=== PATIENT | female | born 1975 | race Caucasian/White ===

== ENCOUNTER 2024-09-18 09:13 | Emergency (ER) | payer BC, SELFPAY ==
[2024-09-18 09:19] VITALS: BP 142/93
[2024-09-18 10:00] VITALS: BP 139/84
[2024-09-18] MEDS: BENADRYL 25 MG IV (11:00)
[2024-09-18] MEDS: REGLAN 10 MG IV (11:00)
[2024-09-18] MEDS: NSS 1000 IV (11:00)
[2024-09-18 11:11] LABS: Hematocrit 41.6 % (37.0-47.0); Hemoglobin 14.3 g/dL (12.0-16.0); Mean Corp Hgb Conc. 34.4 g/dL (33.0-37.0); Mean Corpuscular Volume 88.3 fL (81.0-99.0); Nucleated Red Blood Cells % 0 %; Platelet Count 176 10^3/uL (130-400); Red Cell Dist. Width 13.4 % (11.5-14.5)
[2024-09-18 11:35] LABS: ALT (SGPT) 14 U/L (0-35); AST (SGOT) 19 U/L (14-36); Albumin 4.3 g/dl (3.5-5.0); Alkaline Phosphatase 45 U/L (38-126); Blood Urea Nitrogen 13 mg/dl (7-17); Calcium 9.4 mg/dl (8.4-10.2); Carbon Dioxide 25 mmol/L (22-30); Chloride 106 mmol/L (98-107); Glucose 101 mg/dl (70-99); Potassium 4.0 mmol/L (3.5-5.1); Sodium 137 mmol/L (135-145); Total Protein 7.0 g/dl (6.3-8.2); eGFR > 60.00
[2024-09-18 11:50] LABS: C-Reactive Protein < 5.00 mg/L (0.0-10.00)
[2024-09-18 12:00] VITALS: BP 135/78
[2024-09-18 14:30] VITALS: BP 122/89
--- NOTE | 2024-09-18 14:30 | ED.GENMED ---
History of Present Illness
General
Chief Complaint: Headache
Source: patient and spouse
Time Seen by Provider: 09/18/24 09:32
History of Present Illness
History of Present Illness:
Note:
CHIEF COMPLAINT(S)
Severe headache
HISTORY OF PRESENT ILLNESS
The patient is a 49-year-old female presenting with a severe headache, which first occurred eight days ago. Initially described as pulsating in nature, the headache has evolved to feel like electric shocks. It is predominantly located at the back of
the head and is more intense on the left side. The patient reports that this is unlike her usual headaches, which typically occur in the frontal region and are spaced months apart, typically managed with migraine medication. The current headache
persisted even after treatment at an urgent care center, where she initially received ear drops for a suspected ear infection and subsequent nasal spray, neither of which alleviated the symptoms. A visit to the emergency department was followed by a
CT scan, urinalysis, and a headache cocktail, which provided only temporary relief. The headache returned within an hour. She has also experienced nausea, having vomited once, and reports photophobia, with light sensitivity worsening today.
Additional symptoms include early flu-like symptoms, and there was an unconfirmed episode of fever last week, which responded to medication. The patient recently returned from a trip to [facility] and expressed concern about potential meningitis,
though reassured there are no continuous fevers or severe systemic symptoms indicative of bacterial meningitis. The patient noted unusual sensations on her left side, mentioned her history of multiple sclerosis, and explained her differing pupil
sizes due to past optic neuritis. Additional information from the spouse states that she has had hyperesthesia of her skin.
SOCIAL DETERMINANTS AFFECTING HEALTH
The patient mentioned having to follow up on a medication prescribed for her multiple sclerosis. On questioning, it appears that the new medication might impact her immune system.
REVIEW OF SYSTEMS
- Headache: Severe, located at the occipital region, more pronounced on the left side.
- Visual: Phobic to light and experienced transient diplopia.
- Neurological: Reports of electric shock-like sensation, no consistent fever.
- Nausea: Vomited once, feeling feverish and cold concurrently.
PHYSICAL EXAM
General: Alert, no acute distress.
Skin: Warm, dry.
Head: Normocephalic, atraumatic.
Neck: Supple, trachea midline.
Eye, Ears, Nose, and Mouth: Oral mucosa moist, pupils equal, round, and reactive to light bilaterally.
Cardiovascular: Normal peripheral perfusion, no edema.
Respiratory: Respirations are non-labored.
Gastrointestinal: Abdomen nondistended.
Back: Normal range of motion, normal alignment.
Musculoskeletal: Normal ROM, normal strength.
Neurological: Alert and oriented to person, place, time, and situation, no focal neurological deficit observed.
Psychiatric: Cooperative, appropriate mood and affect.
PROBLEM LIST
Acute:
- Severe occipital headache with atypical pain.
- Transient diplopia.
- Nausea and vomiting.
- Photophobia.
Chronic:
- Multiple sclerosis.
PLAN
- Consider occipital nerve block to evaluate for possible occipital neuralgia and provide symptomatic relief.
- Continue with current steroids as prescribed by previous providers.
- Ensure follow-up with neurology for comprehensive evaluation and ongoing management of multiple sclerosis and headache etiology.
- Obtain additional blood work and urinalysis as per the previous emergency department visit plan for further evaluation.
DIFFERENTIAL DIAGNOSIS
The Differential Diagnosis includes, in no particular order and is not limited to:
- Migraine headache
- Tension-type headache
- Occipital neuralgia
- Sinusitis
- Cluster headache
- Intracranial neoplasm
- Meningitis
- Cerebral venous sinus thrombosis
- Temporal arteritis
- Multiple sclerosis exacerbation
CARE-UPDATE
09/18/24 - 10:51
Patient reassessed with no significant improvement following injection of lidocaine and bupivacaine at the occipital notch. Labs and CTA planned to rule out dissection or aneurysm.
Disposition:
SUMMARY OF ENCOUNTER
The patient, a 49-year-old female, presented to the emergency department with a severe occipital headache evolving into electric shock-like sensations at the back of her head. Her previous treatments, including migraine medications, ear drops, and
nasal spray, did not relieve her symptoms. A CT angiogram of the head and neck ruled out aneurysm, dissection, or significant vascular disease, though mild to moderate cervical disc disease was noted. Despite an occipital nerve block, her headache
persisted. Diazepam was provided as a muscle relaxant to address cervical muscle tenderness and she was advised to continue with steroids and follow up with her primary care provider.
REASSESSMENT
The patient was reassessed and appeared well, engaging with family, yet reported a mild persistent headache.
PLAN
Recommend continuation of current steroids, and follow-up with her primary care provider. If symptoms persist, further workup may be necessary.
INDEPENDENT REVIEW OF LABS AND INTERPRETATION OF TESTS
- My independent interpretation of the CT angiogram of the head and neck shows no evidence of aneurysm, radiology reports no dissection, although mild to moderate cervical disc disease was identified.
MEDICATION RECONCILIATION
- Administered diazepam for muscle relaxation.
MEDICAL DECISION MAKING
- Number and Complexity of Problems Addressed: Chronic conditions affecting care include multiple sclerosis. Differential diagnoses considered include migraine headache, tension-type headache, occipital neuralgia, sinusitis, cluster headache,
intracranial neoplasm, meningitis, cerebral venous sinus thrombosis, temporal arteritis, and multiple sclerosis exacerbation.
- Data:
- Category 1: Reviewed CT angiogram results for any significant vascular abnormalities which were negative, except for cervical disc disease.
- Category 3: Discussed management with the patients spouse and sister at bedside.
- Risk: Consideration of Admission/Observation: Escalation of care, including admission/observation, was considered given the complexity and risk of the patients presenting complaint, exam findings, and underlying comorbidities. However, ultimately
the patient is safe for outpatient management with close follow-up. Reasoning: Work-up reassuring, does not reveal any acute life/organ threatening processes, patients symptoms well controlled upon reevaluation, reexamination is reassuring, vitals
are stable, patient agreeable with discharge, reliable for follow-up. No clinical concern for meningitis.
DIAGNOSIS
- Occipital neuralgia (ICD-10: G44.84)
- Cervical disc disorder with myelopathy (ICD-10: M50.00)
Phy Exam
Physical Exam
Physical Exam:
.
Course
Orders/Labs/Results
Orders:
Orders
09/18/24 10:43
0.9% Sodium Chloride 1000 ml [Nss] 1,000 ml IV BOLUS
Diphenhydramine [Benadryl] 25 mg IV NOW STA
Metoclopramide [Reglan] 10 mg IV NOW STA
09/18/24 10:44
CT Head & Neck Angio W/wo IV Urgent
Comment:
Reason For Exam: severe headache
09/18/24 10:59
Complete Blood Count/With Diff Urgent
Comprehensive Metabolic Panel Urgent
Erythrocyte Sed Rate Urgent
09/18/24 11:06
CRP [C-Reactive Protein] Urgent
Lyme Progressive Urgent
09/18/24 14:29
Diazepam [Valium] 5 mg PO NOW STA
Abnormal Lab Results
09/18/24
10:59
Absolute Neuts (auto) 7.1 H 10^3/uL
(1.4-6.5)
Absolute Lymphs (auto) 1.1 L 10^3/uL
(1.2-3.4)
Absolute Monos (auto) 1.0 H 10^3/uL
(0.1-0.6)
Neutrophils % 76.7 H %
(42.2-75.2)
Lymphocytes % 11.4 L %
(20.5-51.1)
Monocytes % 10.2 H %
(1.7-9.3)
Glucose 101 H mg/dl
(70-99)
09/18/24 10:59
09/18/24 10:59
Vital Signs
Initial and Last Documented VS:
Initial Vital Signs
Temp Pulse Resp BP Pulse Ox
97.9 F 103 18 142/93 100
09/18/24 09:19 09/18/24 09:19 09/18/24 09:19 09/18/24 09:19 09/18/24 09:19
Last Documented Vital Signs
Temp Pulse Resp BP Pulse Ox
97.9 F 103 18 142/93 100
09/18/24 09:19 09/18/24 09:19 09/18/24 09:19 09/18/24 09:19 09/18/24 09:19
*Pulse Oximetry
SaO2: 100
Oxygen Mode of Delivery: Room air
Patient hypoxic: no
*Critical Care Note
Total Time (30-74mins, 75-104mins- exclusive of procedures): Not Applicable
Data Reviewed
Review of Other/Old Records Reveals: Records (Discharge records from [place] reviewed)
ED Attending Note
-
Portions of this chart may have been created with voice recognition software.� Occasional wrong word or��sound alike� substitutions may have occurred due to the inherent limitations of voice recognition software.
Discharge Plan
Departure
Patient Disposition: Home (Routine Discharge)
Date of Disposition: 09/18/24
Time of Disposition: 14:30
Patient with high blood pressure during this ER visit?: No
Discharge Problem:
Headache
Instructions: Headache, Adult (DC)
Prescriptions:
New
diazepam [Valium] 5 mg tablet
5 mg PO TID PRN (Reason: muscle spasm) Qty: 15 0RF
Referrals:
Courtney Jaime MD [Family Provider]
Activity Restrictions/Additional Instructions:
Please see your doctor in follow-up in the next 3 to 5 days. Do not operate a vehicle or any machinery or make important decisions while on Valium. Return immediately for fevers, motor weakness of any kind, changes in mentation, vomiting, vision
changes or any other concerns.
Interventions
Interventions:
*Risk Screen - Suicide Last Done: 09/18/24 09:19
Discharge Date and Time
Print Language: BERMUDIAN
[2024-09-18] MEDS: VALIUM 5 MG PO (14:50)
[2024-09-21 13:31] LABS: Lyme Antibody Screen, EIA Negative (Negative)
== END 2024-09-18 14:58 | disposition home or self-care (01) ==
LOC: EMR 09:13
PROVIDERS: EMERGENCY PHYSICIAN Emergency Medicine; FAMILY PHYSICIAN Student in an Organized Health Care Education/Training Program
DX: R51.9 Headache, unspecified (principal); R11.2 Nausea with vomiting, unspecified; H53.8 Other visual disturbances; M54.81 Occipital neuralgia; G35 Multiple sclerosis; M50.021 Cervical disc disorder at C4-C5 level with myelopathy; Z88.1 Allergy status to other antibiotic agents; Z88.5 Allergy status to narcotic agent; Z88.8 Allergy status to other drugs, medicaments and biological substances
CPT/HCPCS: 64450; 99284; 96374; 96375; 96361; 70496; 70498; 80053; 85025; 85652; 86140; 86618; Q9967